=== PATIENT | female | born 1975 | race Two or more races ===

== ENCOUNTER 2018-02-25 00:33 | Emergency (ER) | payer MEDICAID, OTHER ==
[~2018-02-25] VITALS: Ht 165.1 cm; Wt 85.0 kg
--- NOTE | 2018-02-25 00:51 | NUR ---
PT C/O DIZZINESS X1HR [employer]. PT DENIES SYNCOPAL EPISODE. DENIES N/V. DENIES FALL. DENIES HEAD TRAUMA. VSS. BREATHING EVEN AND UNLABORED. PT A&0X4. aMBULATORY W/ STEADY GAIT.
--- NOTE | 2018-02-25 00:55 | NUR ---
DR CORBY SIU MD AT BEDSIDE FOR MSE.
[2018-02-25] MEDS ORDERED: MECLIZINE HCL 25 MG TABLET PO ONE (01:00)
--- NOTE | 2018-02-25 01:05 | NUR ---
Patient discharged to home in stable conditon. Written and verbal after care instructions given. Patient verbalizes understanding of instructions. Pt ambulated from ER w/ steady gait. Pt denies dizziness at this time. No distress noted. Pt took all personal belongings.
[2018-02-25 01:06] VITALS: BP 138/76
[2018-02-25] MEDS ORDERED: MECLIZINE HCL 25 MG TABLET ONE (01:06)
== END 2018-02-25 01:08 | disposition home or self-care (01) ==
LOC: ER 00:42
DX: H83.09 Labyrinthitis, unspecified ear (principal)
CPT/HCPCS: A4663; J8597

== ENCOUNTER 2018-10-14 13:55 | Emergency (ER) | payer OTHER ==
[~2018-10-14] VITALS: Ht 165.1 cm; Wt 77.1 kg
--- NOTE | 2018-10-14 14:23 | NUR ---
Patient discharged to home in stable conditon. Written and verbal after care instructions given. Patient verbalizes understanding of instructions.
== END 2018-10-14 14:32 | disposition home or self-care (01) ==
LOC: ER 13:55 → MERGE 13:55 → ER 14:32
DX: B35.4 Tinea corporis (principal)
CPT/HCPCS: A4663

== ENCOUNTER 2019-11-07 00:53 | Inpatient (IN) | payer BC, OTHER ==
[2019-11-07] VITALS (9 sets, daily range): BP systolic 93–105; BP diastolic 44–67
[~2019-11-07] VITALS: Ht 165.1 cm; Wt 63.5 kg
--- NOTE | 2019-11-07 01:28 | NUR ---
Dr. Corado at bedside for MSE
[2019-11-07 01:30] LABS: EOSINOPHILS # (AUTO) 0.1 K/uL (0.0-0.7); MEAN CORPUSCULAR VOLUME 58.4 fL (75.5-95.3); MONOCYTES # (AUTO) 0.3 K/uL (2.0-10.0)
[2019-11-07 01:31] LABS: BASOPHILS % (AUTO) 0.3 % (0.0-2.0); HEMATOCRIT 22.6 % (31.2-41.9); LYMPHOCYTES % (AUTO) 29.4 % (20.5-51.5); MEAN CORPUSCULAR HEMOGLOBIN 17.8 uug (24.7-32.8); MEAN CORPUSCULAR HGB CONC 31 g/dL (32.3-35.6); MONOCYTES % (AUTO) 4.2 % (0.0-11.0); NEUTROPHILS # (AUTO) 4.5 K/uL (1.8-8.9); NEUTROPHILS % (AUTO) 65.1 % (38.5-71.5); PLATELET COUNT (AUTO) 386 K/uL (179-408); RED BLOOD CELL COUNT(AUTO) 3.87 MIL/uL (3.63-4.92); WHITE BLOOD COUNT (AUTO) 6.9 K/uL (3.8-11.8)
[2019-11-07 01:39] LABS: BILIRUBIN,DIRECT 0.1 mg/dL (0.0-0.2); BILIRUBIN,TOTAL 0.6 mg/dL (0.2-1.0); CREATININE 0.9 mg/dL (0.6-1.3); POTASSIUM 3.2 mmol/L (3.5-5.1); TOTAL PROTEIN, SERUM 7.2 g/dL (6.4-8.2)
[2019-11-07] MEDS ORDERED: ONDANSETRON ODT 4 MG TAB.RAPDIS SL ONE (01:45)
[2019-11-07] MEDS ORDERED: KETOROLAC TROMETHAMINE 60 MG INJ IM ONE ×2 (01:45→01:46)
[2019-11-07] MEDS ORDERED: ONDANSETRON ODT 4 MG TAB.RAPDIS ONE (01:46)
[2019-11-07 02:54] LABS: HEMOGLOBIN 6.9 g/dL (10.9-14.3)
[2019-11-07 03:13] LABS: *URINE HCG, QUAL NEGATIVE (NEGATIVE)
--- NOTE | 2019-11-07 03:14 | NUR ---
called [facility] for panel placement
[2019-11-07 03:27] LABS: *BLOOD, URINE 1+ (NEGATIVE); *CLARITY,URINE CLOUDY (CLEAR); *COLOR,URINE YELLOW (YELLOW); *KETONES,URINE TRACE (NEGATIVE); *UROBILINOGEN,URINE 0.2 E.U./dl (NORMAL); LEUKOCYTE ESTERASE ,URINE NEGATIVE (NEGATIVE); NITRITE, URINE NEGATIVE (NEGATIVE); PH,URINE 5.5 (5.0-8.0); UGLUCOSE TRACE (NEGATIVE)
[2019-11-07 03:29] LABS: *BILIRUBIN,URIN 1+ (NEGATIVE)
[2019-11-07 03:34] LABS: BACTERIA,URINE MODERATE /HPF (NONE SEEN); MUCUS,URINE MANY /LPF (0-FEW); SQUAMOUS EPITHELIAL CELL,UR MODERATE /HPF (NONE SEEN)
--- NOTE | 2019-11-07 03:49 | NUR ---
Dr. Corado on the phone with Dr. Dominic Mcintosh
--- NOTE | 2019-11-07 03:54 | NUR ---
Pt. admitted to Med Surg , under care of Dr. Dominic Mcintosh Belongs List completed
[2019-11-07] MEDS ORDERED: POTASSIUM CHLORIDE 20 MEQ TAB.PRT.SR PO ONE (04:00)
--- NOTE | 2019-11-07 04:35 | NUR ---
Received patient from ER awake, alert and oriented times four and placed comfortably in bed. Able to follow commands. Able to verbalize wishes and concerns. Vital signs taken and recorded-all parameters were within normal limits. Bedside care done. Physical assessment done and completed. Called Dr Mcintosh for admission orders. Will continue to monitor.
[2019-11-07] MEDS ORDERED: LORAZEPAM 1 MG TABLET PO PRN (05:30)
[2019-11-07] MEDS ORDERED: ONDANSETRON 4 MG/2 ML VIAL IV PRN (05:30)
--- NOTE | 2019-11-07 05:53 | NUR ---
CALLED AND NOTIFY SANDRINE DYER WITH ORDERS. LAB WAS NOTIFY FOR THE TYPE AND SCREEN.
--- NOTE | 2019-11-07 07:30 | NUR ---
Patient calm and comfortable upon initial assessment ; patient with no sings of distress; patient will continue to be monitored.
[2019-11-07 07:54] LABS: EOSINOPHILS % (MANUAL) 2 % (0-8); LYMPHOCYTES % (MANUAL) 31 % (20-40); MONOCYTES % (MANUAL) 3 % (2-10); NEUTROPHILS % (MANUAL) 64 % (42-75)
[2019-11-07] MEDS: PANTOPRAZOLE SODIUM 40 MG VIAL IV SCH ×2 (09:19→22:25)
[2019-11-07 10:00] LABS: BASOPHILS # (AUTO) 0.1 K/uL (0.0-8.0); BASOPHILS % (AUTO) 0.7 % (0.0-2.0); EOSINOPHILS # (AUTO) 0.3 K/uL (0.0-0.7); EOSINOPHILS % (AUTO) 2.5 % (0.0-7.0); HEMATOCRIT 21.5 % (31.2-41.9); LYMPHOCYTES # (AUTO) 2.3 K/uL (20.0-40.0); LYMPHOCYTES % (AUTO) 20.5 % (20.5-51.5); MEAN CORPUSCULAR HEMOGLOBIN 17.9 uug (24.7-32.8); MEAN CORPUSCULAR HGB CONC 31 g/dL (32.3-35.6); MEAN CORPUSCULAR VOLUME 58.2 fL (75.5-95.3); MONOCYTES # (AUTO) 0.3 K/uL (2.0-10.0); MONOCYTES % (AUTO) 2.8 % (0.0-11.0); NEUTROPHILS # (AUTO) 8.2 K/uL (1.8-8.9); NEUTROPHILS % (AUTO) 73.5 % (38.5-71.5); PLATELET COUNT (AUTO) 355 K/uL (179-408); RED BLOOD CELL COUNT(AUTO) 3.69 MIL/uL (3.63-4.92); WHITE BLOOD COUNT (AUTO) 11.1 K/uL (3.8-11.8)
[2019-11-07 10:07] LABS: CREATININE 0.8 mg/dL (0.6-1.3); MAGNESIUM 1.8 mg/dL (1.8-2.4); PHOSPHOROUS 3.3 mg/dL (2.5-4.9); POTASSIUM 3.8 mmol/L (3.5-5.1)
[2019-11-07 10:08] LABS: HEMOGLOBIN 6.6 g/dL (10.9-14.3)
[2019-11-07 10:30] LABS: EOSINOPHILS % (MANUAL) 1 % (0-8); LYMPHOCYTES % (MANUAL) 19 % (20-40); MONOCYTES % (MANUAL) 1 % (2-10); NEUTROPHILS % (MANUAL) 79 % (42-75)
--- NOTE | 2019-11-07 19:38 | NUR ---
Patient calm and comfortable through out shift; patient given 1 unit per MD Orders. Patient tolerated transfusion well ; patient otherwise with baseline vital signs. Patient with partner at bedside. Report given to oncoming nurse.
[2019-11-08 04:15] VITALS: BP 165/92
[2019-11-08] MEDS: PANTOPRAZOLE SODIUM 40 MG VIAL IV SCH ×2 (10:11→20:58)
[2019-11-08 10:14] LABS: BASOPHILS # (AUTO) 0.1 K/uL (0.0-8.0); BASOPHILS % (AUTO) 0.6 % (0.0-2.0); EOSINOPHILS # (AUTO) 0.5 K/uL (0.0-0.7); EOSINOPHILS % (AUTO) 4.8 % (0.0-7.0); HEMATOCRIT 24.9 % (31.2-41.9); HEMOGLOBIN 7.6 g/dL (10.9-14.3); LYMPHOCYTES # (AUTO) 2.5 K/uL (20.0-40.0); LYMPHOCYTES % (AUTO) 25.4 % (20.5-51.5); MEAN CORPUSCULAR HEMOGLOBIN 18.8 uug (24.7-32.8); MEAN CORPUSCULAR HGB CONC 30 g/dL (32.3-35.6); MEAN CORPUSCULAR VOLUME 61.8 fL (75.5-95.3); MONOCYTES # (AUTO) 0.5 K/uL (2.0-10.0); MONOCYTES % (AUTO) 4.9 % (0.0-11.0); NEUTROPHILS # (AUTO) 6.2 K/uL (1.8-8.9); NEUTROPHILS % (AUTO) 64.3 % (38.5-71.5); PLATELET COUNT (AUTO) 351 K/uL (179-408); RED BLOOD CELL COUNT(AUTO) 4.04 MIL/uL (3.63-4.92); WHITE BLOOD COUNT (AUTO) 9.6 K/uL (3.8-11.8)
[2019-11-08 10:19] LABS: CREATININE 0.9 mg/dL (0.6-1.3); POTASSIUM 4.1 mmol/L (3.5-5.1)
[2019-11-08] MEDS: IV NS 1000 ML 1,000 ML IV PRN (10:53)
[2019-11-08 11:40] VITALS: BP 93/42
[2019-11-08 16:12] VITALS: BP 94/45
--- NOTE | 2019-11-08 18:44 | NUR ---
AAOx4. No s/s of acute distress. Vital signs are stable. Safety measures implemented and effective. All needs attended. Call light within reach. Will endorse care accordingly.
[2019-11-08 20:43] VITALS: BP 103/60
[2019-11-09 04:00] VITALS: BP 93/54
[2019-11-09] MEDS: IV NS 1000 ML 1,000 ML IV PRN (05:28)
--- NOTE | 2019-11-09 06:15 | NUR ---
Patient slept well. at bedside. No SOB noted, not in distress. Patient stated she's experiencing like having menstrual cramps but no bleeding noted. Patient refusing pain meds. IV on LAC intact and patent w/ IVF infusing. All needs attended. Will endorse accordingly
[2019-11-09 06:37] LABS: BASOPHILS # (AUTO) 0.1 K/uL (0.0-8.0); BASOPHILS % (AUTO) 0.6 % (0.0-2.0); EOSINOPHILS # (AUTO) 0.5 K/uL (0.0-0.7); EOSINOPHILS % (AUTO) 4.4 % (0.0-7.0); HEMATOCRIT 24.6 % (31.2-41.9); HEMOGLOBIN 7.7 g/dL (10.9-14.3); LYMPHOCYTES # (AUTO) 2.8 K/uL (20.0-40.0); LYMPHOCYTES % (AUTO) 26.8 % (20.5-51.5); MEAN CORPUSCULAR HEMOGLOBIN 18.8 uug (24.7-32.8); MEAN CORPUSCULAR HGB CONC 31 g/dL (32.3-35.6); MEAN CORPUSCULAR VOLUME 60.5 fL (75.5-95.3); MONOCYTES # (AUTO) 0.7 K/uL (2.0-10.0); MONOCYTES % (AUTO) 6.6 % (0.0-11.0); NEUTROPHILS # (AUTO) 6.6 K/uL (1.8-8.9); NEUTROPHILS % (AUTO) 61.6 % (38.5-71.5); PLATELET COUNT (AUTO) 364 K/uL (179-408); RED BLOOD CELL COUNT(AUTO) 4.06 MIL/uL (3.63-4.92); WHITE BLOOD COUNT (AUTO) 10.6 K/uL (3.8-11.8)
[2019-11-09 06:41] LABS: CREATININE 0.7 mg/dL (0.6-1.3); POTASSIUM 3.9 mmol/L (3.5-5.1)
--- NOTE | 2019-11-09 07:20 | NUR ---
RECEIVED PATIENT IN BED ALERT AND ORIENTED X3 WITH AT BEDSIDE, IV INTACT AND PATENT. NO C/O PAIN AT THIS TIME. NO S/S OF ACUTE DISTRESS NOTED. SAFETY AND COMFORT PROVIDED AT ALL TIME.
[2019-11-09] MEDS: PANTOPRAZOLE SODIUM 40 MG VIAL IV SCH (08:29)
[2019-11-09] MEDS ORDERED: SULF1TAB48 PO (08:37)
--- NOTE | 2019-11-09 09:45 | NUR ---
RECEIVED DISCHARGE ORDER TO HOME VIA PRIVATE CAR WITH , DISCHARGE INSTRUCTION GIVEN AND MEDICATION PRESCRIPTION GIVEN WITH MEDICATION EXPLANATION PROVIDED. IV AND ID BAND REMOVED, NO SOB NOTED AND NO C/O PAIN OR BLEEDING NOTED. BELONGINGS ACCOUNTED FOR AND SIGNED. QUESTIONS AND CONCERNS ADDRESSED. ESCORTED PATIENT OUT THE FACILITY VIA WHEELCHAIR
== END 2019-11-09 09:45 | disposition home or self-care (01) | DRG 812 ==
LOC: ER 00:59 → MEDSURG3 04:13
PROVIDERS: ADMIT Nurse Practitioner Acute Care; ATTEND Family Medicine
PROC: 30233N1 Transfusion of Nonautologous Red Blood Cells into Peripheral Vein, Percutaneous Approach (ICD-10-PCS; principal; 2019-11-07)
DX: D62 Acute posthemorrhagic anemia (principal); N39.0 Urinary tract infection, site not specified; D25.9 Leiomyoma of uterus, unspecified; N92.0 Excessive and frequent menstruation with regular cycle; E87.6 Hypokalemia; Z98.84 Bariatric surgery status; R73.9 Hyperglycemia, unspecified; Z72.0 Tobacco use
CPT/HCPCS: 36415; 70030-TC; 83690; 83735; 84100; 84703; 85025; 86850; 86900; 86901; 86920; 87077; 87086; 87400; 93005; C9113; G0378; J1885; J7030; J7050; P9016-BL; P9021; Q0162

== ENCOUNTER 2020-07-04 19:28 | Inpatient (IN) | payer BC, MEDICAID ==
[~2020-07-04] VITALS: Ht 165.1 cm; Wt 71.8 kg
[~2020-07-04 19:28] MED LIST: SULF1TAB48 PO
[2020-07-04] MEDS ORDERED: CHOL100045 PO (19:41)
[2020-07-04] MEDS ORDERED: [UNRECOGNIZED DRUG - REMARK] (19:41)
[2020-07-04] MEDS ORDERED: FERR325T27 PO (19:41)
--- NOTE | 2020-07-04 20:10 | NUR ---
First contact with pt. has seen patient already at this time. AO x 4. c/o severe vaginal bleeding x 2 weeks; with darkened blood in the pasttwo Able to ambulate to bathroom, urine sample obtained. Line and labs done. Sent to lab.
[2020-07-04 20:31] LABS: BASOPHILS # (AUTO) 0.1 K/uL (0.0-8.0)
[2020-07-04 20:34] LABS: CREATININE 0.8 mg/dL (0.6-1.3); POTASSIUM 3.9 mmol/L (3.5-5.1)
[2020-07-04 20:38] LABS: BASOPHILS % (AUTO) 1.7 % (0.0-2.0); EOSINOPHILS # (AUTO) 0.4 K/uL (0.0-0.7); EOSINOPHILS % (AUTO) 5.1 % (0.0-7.0); HEMATOCRIT 21.7 % (31.2-41.9); LYMPHOCYTES # (AUTO) 2.1 K/uL (20.0-40.0); MEAN CORPUSCULAR HEMOGLOBIN 16.8 uug (24.7-32.8); MEAN CORPUSCULAR HGB CONC 31 g/dL (32.3-35.6); MEAN CORPUSCULAR VOLUME 54.8 fL (75.5-95.3); MONOCYTES # (AUTO) 0.5 K/uL (2.0-10.0); MONOCYTES % (AUTO) 6.4 % (0.0-11.0); NEUTROPHILS # (AUTO) 4.7 K/uL (1.8-8.9); NEUTROPHILS % (AUTO) 59.8 % (38.5-71.5); PLATELET COUNT (AUTO) 399 K/uL (179-408); RED BLOOD CELL COUNT(AUTO) 3.95 MIL/uL (3.63-4.92); WHITE BLOOD COUNT (AUTO) 7.8 K/uL (3.8-11.8)
[2020-07-04 20:40] LABS: BILIRUBIN,DIRECT 0.1 mg/dL (0.0-0.2); BILIRUBIN,TOTAL 0.6 mg/dL (0.2-1.0); TOTAL PROTEIN, SERUM 7.5 g/dL (6.4-8.2)
[2020-07-04 20:41] LABS: *BILIRUBIN,URIN NEGATIVE (NEGATIVE); *BLOOD, URINE 2+ (NEGATIVE); *CLARITY,URINE CLEAR (CLEAR); *COLOR,URINE YELLOW (YELLOW); *KETONES,URINE NEGATIVE (NEGATIVE); *UROBILINOGEN,URINE 0.2 E.U./dl (NORMAL); LEUKOCYTE ESTERASE ,URINE NEGATIVE (NEGATIVE); NITRITE, URINE NEGATIVE (NEGATIVE); PH,URINE 5.5 (5.0-8.0); UGLUCOSE NEGATIVE (NEGATIVE)
[2020-07-04 20:44] LABS: HEMOGLOBIN 6.6 g/dL (10.9-14.3)
--- NOTE | 2020-07-04 20:50 | NUR ---
Pending insurance check. But called for (possible) bed. CN will call me back.
[2020-07-04] MEDS ORDERED: ONDANSETRON 4 MG/2 ML VIAL IV PRN (21:45)
[2020-07-04] MEDS ORDERED: ACETAMINOPHEN 325 MG TABLET PO PRN (21:45)
[2020-07-04] MEDS ORDERED: HYDROCODONE/APAP 5-325MG TABLET PO PRN (21:45)
[2020-07-04 21:54] LABS: IRON, SERUM 57 ug/dL (50-175)
[2020-07-04 21:57] LABS: *URINE HCG, QUAL NEGATIVE (NEGATIVE)
[2020-07-05] VITALS (12 sets, daily range): BP systolic 92–103; BP diastolic 39–57
--- NOTE | 2020-07-05 00:10 | NUR ---
SBAR REPORT TO ALBERT PANDYA. PT HAD BELONGINGS LIST DONE.
--- NOTE | 2020-07-05 00:20 | NUR ---
RECEIVED PT FROM ER VIA WHEELCHAIR. PT IN NO ACUTE DISTRESS. UNDER THE CARE OF DR. FLYNN DX: SYMPTOMATIC ANEMIA, VAGINAL BLOOD LOSS.PT AWAKE, ALERT AND ORIENTEDX4. PT INTACT. BELONGING LIST DONE. ALF ASSESSMENT DONE. ADMISSION PROCESS AND CARE PLAN INITIATED. PT TO BE GIVEN BLOOD. BLOOD CONSENT SIGNED. SAFETY AND COMFORT PROVIDED. WILL CONTINUE TO MONITOR.
[2020-07-05 03:19] LABS: BACTERIA,URINE MANY /HPF (NONE SEEN); RBC,URINE 0-3 /HPF (0-3); SQUAMOUS EPITHELIAL CELL,UR FEW /HPF (NONE SEEN); URINE AMORPHOUS URATE MANY /HPF; WBC,URINE 0-3 /HPF (0-3)
[2020-07-05 03:31] LABS: EOSINOPHILS % (MANUAL) 4 % (0-8); LYMPHOCYTES % (MANUAL) 29 % (20-40); MONOCYTES % (MANUAL) 8 % (2-10); NEUTROPHILS % (MANUAL) 59 % (42-75)
--- NOTE | 2020-07-05 04:33 | NUR ---
Pt tolerated blood transfusion. No adverse effect noted. Vital Signs within normal limit. Will continue to monitor.
--- NOTE | 2020-07-05 06:04 | NUR ---
PT SLEPT INTERMITTENTLY. PT IN NO ACUTE DISTRESS. IV INTACT. SAFETY AND COMFORT PROVIDED. WILL ENDORSE TO INCOMING NURSE FOR CONTINUITY OF CARE.
[2020-07-05] MEDS: PANTOPRAZOLE SODIUM 40 MG TABLET.DR PO SCH (06:10)
[2020-07-05 06:26] LABS: BASOPHILS # (AUTO) 0.1 K/uL (0.0-8.0); BASOPHILS % (AUTO) 0.8 % (0.0-2.0); EOSINOPHILS # (AUTO) 0.6 K/uL (0.0-0.7); EOSINOPHILS % (AUTO) 6.7 % (0.0-7.0); HEMATOCRIT 23.8 % (31.2-41.9); HEMOGLOBIN 7.5 g/dL (10.9-14.3); LYMPHOCYTES # (AUTO) 2.4 K/uL (20.0-40.0); LYMPHOCYTES % (AUTO) 28.7 % (20.5-51.5); MEAN CORPUSCULAR HEMOGLOBIN 18.5 uug (24.7-32.8); MEAN CORPUSCULAR HGB CONC 32 g/dL (32.3-35.6); MEAN CORPUSCULAR VOLUME 58.4 fL (75.5-95.3); MONOCYTES # (AUTO) 0.6 K/uL (2.0-10.0); NEUTROPHILS # (AUTO) 4.7 K/uL (1.8-8.9); NEUTROPHILS % (AUTO) 56.8 % (38.5-71.5); PLATELET COUNT (AUTO) 335 K/uL (179-408); RED BLOOD CELL COUNT(AUTO) 4.08 MIL/uL (3.63-4.92); WHITE BLOOD COUNT (AUTO) 8.3 K/uL (3.8-11.8)
[2020-07-05 06:35] LABS: CREATININE 0.7 mg/dL (0.6-1.3); PHOSPHOROUS 3.9 mg/dL (2.5-4.9); POTASSIUM 4.2 mmol/L (3.5-5.1)
--- NOTE | 2020-07-05 07:00 | NUR ---
received in bed awake ,vs are stable ,no c/o pain noted
[2020-07-05] MEDS: CHOLECALCIFEROL 1,000 UNIT TABLET PO SCH (07:58)
--- NOTE | 2020-07-05 16:11 | NUR ---
in room sleeping no c/o pain noted call light with in reach
--- NOTE | 2020-07-05 20:30 | NUR ---
Pt A/O x4. No acute distress noted. On RA, no SOB noted or reported. Pt denied any pain or discomfort at this time. VS stable. All needs met. All safety precautions in place. Pt care and monitoring continued.
--- NOTE | 2020-07-06 05:44 | NUR ---
Pt slept well. Pt denied any pain or discomfort during shift. Plan for discharge home today. Pt safety maintained during shift.
[2020-07-06 05:45] VITALS: BP 100/52
[2020-07-06] MEDS: PANTOPRAZOLE SODIUM 40 MG TABLET.DR PO SCH (06:43)
[2020-07-06 07:19] LABS: BASOPHILS # (AUTO) 0.1 K/uL (0.0-8.0); BASOPHILS % (AUTO) 0.9 % (0.0-2.0); EOSINOPHILS # (AUTO) 0.5 K/uL (0.0-0.7); EOSINOPHILS % (AUTO) 5.2 % (0.0-7.0); HEMATOCRIT 25.3 % (31.2-41.9); HEMOGLOBIN 7.9 g/dL (10.9-14.3); LYMPHOCYTES # (AUTO) 2.5 K/uL (20.0-40.0); MEAN CORPUSCULAR HGB CONC 31 g/dL (32.3-35.6); MEAN CORPUSCULAR VOLUME 57.9 fL (75.5-95.3); MONOCYTES # (AUTO) 0.6 K/uL (2.0-10.0); MONOCYTES % (AUTO) 6.3 % (0.0-11.0); NEUTROPHILS # (AUTO) 5.7 K/uL (1.8-8.9); NEUTROPHILS % (AUTO) 60.6 % (38.5-71.5); PLATELET COUNT (AUTO) 342 K/uL (179-408); RED BLOOD CELL COUNT(AUTO) 4.37 MIL/uL (3.63-4.92); WHITE BLOOD COUNT (AUTO) 9.4 K/uL (3.8-11.8)
[2020-07-06 07:33] LABS: CREATININE 0.7 mg/dL (0.6-1.3); POTASSIUM 4.1 mmol/L (3.5-5.1)
--- NOTE | 2020-07-06 07:45 | NUR ---
received patient in bed, awake, alert and verbally responsive. No signs of distress noted. No SOB. No complain of pain or discomfort. Minimal vaginal bleeding noted. kept clean and comfortable. Will continue to monitor.
[2020-07-06] MEDS: CHOLECALCIFEROL 1,000 UNIT TABLET PO SCH (08:39)
[2020-07-06] MEDS ORDERED: FERROUS SULFATE 325 MG TABEC PO SCH (09:00)
--- NOTE | 2020-07-06 10:48 | NUR ---
Patient is awake, alert and verbally responsive. No signs of distress noted. No SOB. No complain of pain or discomfort. Patient with Discharge Order today, Discharge Instructions given to patient and verbalized understanding. All belongings was signed and sent with patient. removed IV site and wrist band. patient was picked up by via Private car in stable condition.
== END 2020-07-06 10:48 | disposition home or self-care (01) | DRG 663 ==
LOC: ER 19:28 → TELE3 23:50 → MEDSURG3 07-05 02:00
PROVIDERS: ADMIT Nurse Practitioner Acute Care; ATTEND Nurse Practitioner Acute Care
PROC: 30233N1 Transfusion of Nonautologous Red Blood Cells into Peripheral Vein, Percutaneous Approach (ICD-10-PCS; principal; 2020-07-05)
DX: D62 Acute posthemorrhagic anemia (principal); N93.9 Abnormal uterine and vaginal bleeding, unspecified; Z71.6 Tobacco abuse counseling; R53.1 Weakness; F17.210 Nicotine dependence, cigarettes, uncomplicated; D25.9 Leiomyoma of uterus, unspecified
CPT/HCPCS: 36415; 70030-TC; 83550; 83735; 84100; 84703; 85025; 86850; 86900; 86901; 86920; A4663; G0378; J7040; P9016-BL; P9021

== ENCOUNTER 2021-09-06 08:27 | Emergency (ER) | payer MEDICAID ==
[~2021-09-06] VITALS: Ht 165.1 cm; Wt 54.4 kg
[~2021-09-06 08:27] MED LIST changes: +CHOL100045 PO; +FERR325T27 PO; -SULF1TAB48 PO; +[UNRECOGNIZED DRUG - REMARK]
[2021-09-06] MEDS ORDERED: IPRATROPIUM BROMIDE 0.5 MG/2.5 ML NEBU NEB ONE (08:45)
[2021-09-06] MEDS ORDERED: ALBUTEROL SULFATE 2.5 MG/3 ML NEBU NEB ONE (08:45)
[2021-09-06] MEDS ORDERED: IPRATROPIUM BROMIDE 0.5 MG/2.5 ML NEBU ONE (09:01)
[2021-09-06] MEDS ORDERED: ALBUTEROL SULFATE 2.5 MG/3 ML NEBU ONE (09:01)
--- NOTE | 2021-09-06 09:10 | NUR ---
Pt sitting fowlers positin on gurney with RT at bedside. EKG, saline lock, blood draw done. Labs taken to lab
[2021-09-06 09:23] LABS: HEMATOCRIT 37.1 % (31.2-41.9); MEAN CORPUSCULAR HEMOGLOBIN 24.2 uug (24.7-32.8); MEAN CORPUSCULAR VOLUME 74.2 fL (75.5-95.3); PLATELET COUNT (AUTO) 350 K/uL (179-408)
[2021-09-06 09:24] LABS: CREATININE 0.7 mg/dL (0.6-1.3); POTASSIUM 3.6 mmol/L (3.5-5.1)
--- NOTE | 2021-09-06 09:35 | NUR ---
Pt states improvement in S/S, in NAD at this time.
[2021-09-06] MEDS ORDERED: ALBU6.7H9 INH (09:51)
[2021-09-06] MEDS ORDERED: PRED50TA PO (09:51)
[2021-09-06] MEDS ORDERED: predniSONE 20 MG TABLET PO ONE (10:00)
[2021-09-06] MEDS ORDERED: predniSONE 10 MG TABLET PO ONE (10:00)
[2021-09-06] MEDS ORDERED: IOHEXOL 350 100 ML INFUS..BTL ONE (10:33)
[2021-09-06] MEDS ORDERED: SWABABLE VALVE TRANSFER SET EA MC ONE (10:33)
[2021-09-06] MEDS ORDERED: IV NORMAL SALINE 250 ML IV ONE (10:33)
--- NOTE | 2021-09-06 10:38 | NUR ---
Consent form for CT scan done by pt. Taken to CT via gurney by tech.
[2021-09-06 11:23] VITALS: BP 111/67
--- NOTE | 2021-09-06 11:23 | NUR ---
Pt states improvement in symptoms. Saline lock D/C clear and intact. Patient discharged to home in stable condition. Written and verbal after care instructions given. Patient verbalizes understanding of instructions. Stressed follow up or return to ER for worsening s/s.
[2021-09-06 11:26] LABS: EOSINOPHILS % (MANUAL) 3 % (0-8); LYMPHOCYTES % (MANUAL) 26 % (20-40); MONOCYTES % (MANUAL) 3 % (2-10); NEUTROPHILS % (MANUAL) 68 % (42-75)
== END 2021-09-06 11:24 | disposition home or self-care (01) ==
LOC: ER 08:28
DX: J98.01 Acute bronchospasm (principal); R07.89 Other chest pain; F17.211 Nicotine dependence, cigarettes, in remission; Z90.710 Acquired absence of both cervix and uterus; R79.1 Abnormal coagulation profile
CPT/HCPCS: 36415; 71045; 71275; 80048; 83880; 84484; 84702; 85007; 85025; 85379; 93005; 94640; 99285; J7512; Q9967; 70030-TC; A4663; J3590; J7050